=== PATIENT | male | born 1985 | race African-American/Black ===

== ENCOUNTER 2020-01-16 10:43 | Emergency (ER) | payer BC, OTHER ==
[~2020-01-16] VITALS: Ht 177.8 cm; Wt 92.1 kg
[2020-01-16 12:40] LABS: Urine Bacteria NONE SEEN /hpf (None Seen); Urine Blood Negative /uL (Negative); Urine Mucus FEW (None Seen); Urine Specific Gravity 1.034 (1.001-1.035); Urine WBC 3 /hpf (0 - 3)
[2020-01-16 14:00] VITALS: BP 140/89
== END 2020-01-16 14:43 | disposition home or self-care (01) ==
LOC: ER 10:43
DX: S39.011A Strain of muscle, fascia and tendon of abdomen, initial encounter (principal); X58.XXXA Exposure to other specified factors, initial encounter; Y93.89 Activity, other specified; Y92.89 Other specified places as the place of occurrence of the external cause; Y99.8 Other external cause status
CPT/HCPCS: 74176; 81001